=== PATIENT | female | born 1975 | race Caucasian/White ===

== ENCOUNTER 2018-11-22 19:39 | Emergency (ER) | payer MEDICAID ==
[~2018-11-22] VITALS: Ht 165.1 cm; Wt 61.4 kg
[~2018-11-22 19:39] MED LIST: HYDR-4383 PO
[2018-11-22 19:52] VITALS: BP 101/60
[2018-11-22] MEDS ORDERED: TOBR5DRO2 EACHEYE (21:41)
== END 2018-11-22 22:00 | disposition home or self-care (01) ==
LOC: ER 19:39
DX: H10.89 Other conjunctivitis (principal); Z98.890 Other specified postprocedural states
CPT/HCPCS: 99283